=== PATIENT | male | born 1985 | race Two or more races ===

== ENCOUNTER 2021-08-18 12:12 | Emergency (ER) | payer OTHER ==
[~2021-08-18] VITALS: Ht 167.6 cm; Wt 90.7 kg
[2021-08-18 12:12] VITALS: BP 115/76
[2021-08-18] MEDS ORDERED: KETOROLAC TROMETH 60MG/2ML VIAL IM ONE (13:45)
[2021-08-18] MEDS ORDERED: IBUP800T27 PO (13:56)
[2021-08-18] MEDS ORDERED: METH750T22 PO (13:56)
== END 2021-08-18 14:00 | disposition home or self-care (01) ==
LOC: ER 12:12
DX: S16.1XXA Strain of muscle, fascia and tendon at neck level, initial encounter (principal); F17.210 Nicotine dependence, cigarettes, uncomplicated; Z87.442 Personal history of urinary calculi; W18.39XA Other fall on same level, initial encounter; Y93.42 Activity, yoga; Y92.89 Other specified places as the place of occurrence of the external cause; Y99.8 Other external cause status
CPT/HCPCS: 72040; 96372; 99283; J1885

== ENCOUNTER 2024-11-25 06:36 | Emergency (ER) | payer BC, MEDICAID ==
[~2024-11-25] VITALS: Ht 167.6 cm; Wt 87.7 kg
[~2024-11-25 06:36] MED LIST: IBUP-1456 PO; METH-1182 PO
--- NOTE | 2024-11-25 07:02 | ED.PDOC ---
GI ASSESSMENT HPI Comments 39 y/o M, presents to the ED for CC of GI Bleed. Patient states, he has been having bloody stools with associated abdominal distension x4days. Patient reports, being unable to have daily bowel movements and to have struggled with constipation since, childhood. Patient denies abdominal pain, nausea, vomiting, weakness, or fatigue. No other symptoms or modifying factors are present at this time. Chief Complaint: GI Bleed Time Seen by MD: 06:50 Primary Care Provider: 'S Reviewed Notes: Nurses Notes, Medications, Allergies Allergies: Coded Allergies: NO KNOWN ALLERGIES (Unverified , 08/18/21) Home Meds Active Scripts Methocarbamol (Methocarbamol) 750 Mg Tab, 750 MG PO QHSP PRN, #20 TAB Prov:CADY RAMIREZ 08/18/21 Ibuprofen (Ibuprofen) 800 Mg Tab, 800 MG PO Q8HP PRN, #30 TAB Prov:CADY RAMIREZ 08/18/21 Information Source: Patient Mode of Arrival: Ambulatory Timing: Days Duration: Since onset Prehospital treatment: None Quality: None Vomitus: None Stool: Impaction Severity: Moderate Recent: None Recent Hx of: None Pain Location: None Modifying Factors: Nothing Associated sign and symptoms: Blood in Stool Past Medical History PAST MEDICAL HISTORY: Anxiety, Depression, Kidney Stones Family History Family History: Reviewed,noncontributory to illness Social History Smoker: Cigarettes Alcohol: Occasionally Drugs: Denies Drug Use Lives In: Home Constitutional: denies: chills, diaphoresis, fatigue, fever, malaise, sweats, weakness, others EENTM: denies: blurred vision, double vision, ear bleeding, ear discharge, ear drainage, ear pain, ear ringing, eye pain, eye redness, hearing loss, mouth pain, mouth swelling, nasal discharge, nose bleeding, nose congestion, nose pain, photophobia, tearing, throat pain, throat swelling, voice changes, others Respiratory: denies: cough, hemoptysis, orthopnea, SOB at rest, shortness of breath, SOB with excertion, stridor, wheezing, others Cardiovascular: denies: chest pain, dizzy spells, diaphoresis, Dyspnea on exertion, edema, irregular heart beat, left arm pain, lightheadedness, p alpitations, PND, syncope, others Gastrointestinal: reports: abdomen distended, blood streaked bowels; denies: abdominal pain, constipated, diarrhea, dysphagia, difficulty swallowing, hematemesis, melena, nausea, poor appetite, poor fluid intake, rectal bleeding, rectal pain, vomiting, others Genitourinary: denies: burning, dysuria, flank pain, frequency, hematuria, incontinence, penile discharge, penile sore, pain, testicle pain, testicle swelling, urgency, others Neurological: denies: dizziness, fainting, headache, left sided numbness, left sided weakness, numbness, paresthesia, pre-existing deficit, right sided numbness, right sided weakness, seizure, speech problems, tingling, tremors, weakness, others Musculoskeletal: denies: back pain, gout, joint pain, joint swelling, muscle pain, muscle stiffness, neck pain, others Integumetry: denies: bruises, change in color, change in hair/nails, dryness, laceration, lesions, lumps, rash, wounds, others Allergic/Immunocompromised: denies: Difficulty Healing, Frequent Infections, Hives, Itching, others Hematologic/Lymphatic: denies: anemia, blood clots, easy bleeding, easy bruising, swollen glands, others Endocrine: denies: excessive hunger, excessive sweating, excessive thirst, excessive urination, flushing, intolerance to cold, intolerance to heat, une xplained weight gain, unexplained weight loss, others Psychiatric: denies: anxiety, bipolar disorder, depression, hopeless, panic disorder, schizophrenia, sleepless, suicidal, others All Other Systems: Reviewed and Negative Physical Exam General Appearance: Moderate Distress HEENT: Normal ENT Inspection, Pharynx Normal, TMs Normal Neck: Full Range of Motion, Non-Tender, Normal, Normal Inspection Respiratory: Chest Non-Tender, Lungs Clear, No Accessory Muscle Use, No Respiratory Distress, Normal Breath Sounds Cardiovascular: No Edema, No JVD, No Murmur, No Gallop, Normal Peripheral Pulses, Regular Rate/Rhythm Breast Exam: Deferred Gastrointestinal: No Organomegaly, Non Tender, No Pulsatile Mass, Normal Bowel Sounds, Soft Genitalia: Deferred Pelvic: Deferred Rectal: Deferred Extremities: No calf tenderness, Normal capillary refill, Normal inspection, Normal range of motion, Non-tender, No pedal edema Musculoskeletal : Apperance: Normal Neurologic: Alert, fast food manager II-XII nml as Tested, No Motor Deficits, Normal Affect, Normal Mood, No Sensory Deficits Cerebellar Function: Normal Reflexes: Normal Skin: Dry, Normal Color, Warm Peripheral Pulses: 3+ Radial (R), 3+ Radial (L) Lymphatic: No Adenopathy Was a procedure done? Was a procedure done?: No GI differential Dx Differential Diagnosis: Constipation, Diverticular disease, Esophagitis, Gastritis/PUD, Gastroenteritis, Inflammatory BD X-Ray, Labs, Meds, VS Vital Signs Date Time Temp Pulse Resp B/P (MAP) Pulse Ox O2 Delivery O2 Flow Rate FiO2 11/25/24 06:41 97.7 75 17 104/66 95 97.7 Patient alert. Complaining of bright red blood his bowel movement. History of constipation. Vitals stable. He does take pain medication. Ambulating. Abdomen is soft nontender. No sign of distress. Was given prescription of Anusol hydrocortisone. Explained to the patient. Was told to follow up with his primary care physician. Was told to come back if there is any problem. Time of 1ST Reevaluation: 07:20 Reevaluation 1ST: Unchanged Patient Education/Counseling: Diagnosis, Treatment Family Education/Counseling: No Family Present SEPSIS Sepsis Screen Date sepsis recognized/suspect: Nov 25, 2024 Time Sepsis recognized/suspect: 640 Recent Procedure: No On Antibiotic Therapy: No Respiratory Rate >20: No Heart Rate >90: No Temp<36 C (96.8 F) or >38.3 C: No SBP <90 or MAP <65 mmHG: No New Acute Mental Status Change: No Is the patient on CPAP, BIPAP,: No Physician Orders Complete Blood Count (11/25/24 06:57) Basic Metabolic Panel (11/25/24 06:57) Vital Signs Date Time Temp Pulse Resp B/P (MAP) Pulse Ox O2 Delivery O2 Flow Rate FiO2 11/25/24 06:41 97.7 75 17 104/66 95 97.7 Departure 1 Departure Time of Disposition: 07:03 Impression: Primary Impression: Hemorrhoids Qualified Codes: K64.9 - Unspecified hemorrhoids Disposition: 01 HOME / SELF CARE / HOMELESS Condition: Good e-Prescriptions Hydrocortisone Base (Anusol-Hc) 2.5 % Cre 1 APPLIC TOP BID for 7 Days, #30 GRAMS 1 Refill Prov: LJ MART MD 11/25/24 Discharged With: Self Critical Care Note Critical Care Time?: No Stability Stability form required: No Heart Score Heart Score: Heart Score Response (Comments) Value History N/A 0 EKG N/A 0 Age N/A 0 Risk Factors N/A 0 Troponin N/A 0 Total 0 I personally scribed for LJ MART MD ([email or web address]) on 11/25/24 at 07:02. Electronically submitted by Larissa Ritter ([email or web address]). LJ MART MD Nov 25, 2024 07:02
[2024-11-25] MEDS ORDERED: HYDR2.5C39 TOP (07:04)
[2024-11-25 07:28] LABS: Hematocrit 43.4 % (41.0-53.0); Hemoglobin 15.5 g/dL (13.5-17.5); Mean Corpuscular Hemoglobin 32.2 pg (28.0-32.0); Mean Corpuscular Volume 90.3 fL (80.0-100.0); Nucleated Red Blood Cells % 0.2 %
[2024-11-25 07:35] LABS: Chloride 106 mmol/L (98-107); Potassium 4.5 mmol/L (3.5-5.1); Sodium 142 mmol/L (136-145)
[2024-11-25 07:36] LABS: Anion Gap 7 (5-15); Carbon Dioxide 29 mmol/L (20-31)
[2024-11-25 07:37] LABS: Calcium 9.2 mg/dL (8.7-10.4)
[2024-11-25 07:42] LABS: BUN/Creatinine Ratio 7.1 (10.0-20.0); Glucose 100 mg/dL (74-106)
[2024-11-25 07:43] LABS: Blood Urea Nitrogen 6 mg/dL (9-23)
[2024-11-25 08:01] VITALS: BP 115/62; PULSE 87; RESP 17; TEMP 98; O2SAT 98
== END 2024-11-25 08:00 | disposition home or self-care (01) ==
LOC: ER 06:36
DX: K64.9 Unspecified hemorrhoids (principal); F41.9 Anxiety disorder, unspecified; F32.A Depression, unspecified; F17.210 Nicotine dependence, cigarettes, uncomplicated
CPT/HCPCS: 36415; 80048; 85025